=== PATIENT | female | born 1980 | race Caucasian/White ===

== ENCOUNTER 2017-12-19 10:02 | Emergency (ER) | payer OTHER ==
[~2017-12-19] VITALS: Ht 157.5 cm; Wt 58.1 kg
--- NOTE | ~2017-12-19 | EKG ---
[place] [address] [facility] [place] [address] ELECTROCARDIOGRAM REPORT Name: GADIEL HILLS [facility] [id number] Admission: 12/19/17 Attend Phys: Discharge: 12/19/17 Date of : 84 Report #: [id number] THIS REPORT FOR: //name// [facility] ED Test Date: 2017-12-19 Test Time: 10:12:04 Pat Name: GADIEL HILLS Department: Room: Gender: F Access Control Specialist: TSTORCK : 1980 Requested By: Juana Whittington Order Number: [id number] MD: Diogenes Tovar Measurements Intervals [place] Rate: 81 P: 46 MN: 163 QRS: 15 QRSD: 82 T: -17 QT: 411 QTc: 477 Interpretive Statements Sinus rhythm Borderline prolonged QT interval Compared to ECG 10/14/2012 23:31:20 QT interval as lengthened Electronically Signed On 12-19-2017 16:32:56 CDT by Diogenes Tovar [email or web address] <ELECTRONICALLY SIGNED> By: Diogenes Tovar MD, [facility] 12/19/17 1632 1012 1012 Diogenes Tovar MD, FACC /EPI
[~2017-12-19 10:02] MED LIST: ACETAMINOPHEN650 M5 PO; ACYCLOVIR 800800 M1 PO; ATIVAN0.5 MG PO; BACTRIM DS TAB1 EACH PO; BUSPIRONE HCL PO; CIPROFLOXACIN500 M1 PO; CLONAZEPAM PO; CYMBALTA30 MG PO; DOXYCYCLINE 10100 MG PO; FLAGYL500 MG PO; HYDROCODONE-AP1 EA12 PO; KEFLEX500 MG PO; NAPROSYN500 MG PO; NORCO 5-325 TA1 EACH PO; PAXIL10 MG PO; PERCOCET 5-3251 EACH PO; PHENERGAN 25 MG25 M1 PO; PROZAC 10 MG CA10 MG PO; PROZAC 20 MG20 M1 PO; PYRIDIUM200 MG PO; REMERON30 MG; SEROQUEL 50 MG50 M1 PO; ULTRAM 50MG TAB50 MG PO
[2017-12-19] MEDS ORDERED: KLONOPIN1 MG PO (10:27)
[2017-12-19] MEDS ORDERED: WELLBUTRIN 100100 MG PO (10:28)
[2017-12-19 10:29] LABS: ABSOLUTE NEUTROPHILS 5.9 thou/uL (1.4-8.2); BASOPHILS 0.5 % (0.0-2.0); EOSINOPHILS 0.1 % (0.0-3.0); HEMATOCRIT 34.9 % (37.0-47.0); HEMOGLOBIN 11.9 gm/dL (12.0-15.0); LYMPHOCYTES 11.6 % (24.0-44.0); MCH 28.3 pg (26.0-34.0); MCV 83.1 fL (80.0-100.0); MONOCYTES 2.9 % (1.0-8.0); PLATELET COUNT 221 thou/uL (150-400); POLYS 84.9 % (36.0-66.0); RDW 13.1 % (10.5-14.5); WBC 6.9 thou/uL (4.0-11.0)
[2017-12-19] MEDS ORDERED: PRILOSEC 20 MG20 MG PO (10:29)
[2017-12-19] MEDS ORDERED: METHADONE10 MG/5 M1 PO (10:30)
[2017-12-19] MEDS ORDERED: AMITRIPTYLINE H10 M3 PO (10:30)
[2017-12-19 10:41] LABS: CALCIUM 8.9 mg/dL (8.5-10.1); CREATININE 0.8 mg/dL (0.6-1.0); POTASSIUM 3.7 mmol/L (3.5-5.1)
[2017-12-19 10:47] LABS: ALBUMIN 3.9 g/dL (3.4-5.0); TOTAL BILIRUBIN 0.3 mg/dL (<0.1-1.0); TOTAL PROTEIN 7.7 g/dL (6.4-8.2)
[2017-12-19 11:43] LABS: URINE BLOOD 3+ (Negative); URINE CLARITY CLEAR; URINE COLOR YELLOW; URINE GLUCOSE-RANDOM* NEGATIVE (Negative); URINE KETONES 3+ (Negative); URINE LEUKOCYTES-REFLEX NEGATIVE (Negative); URINE NITRITE-REFLEX NEGATIVE (Negative); URINE PROTEIN (DIPSTICK) TRACE (Negative); URINE SPECIFIC GRAVITY >= 1.030 (1.005-1.035); URINE UROBILINOGEN 0.2 E.U./dl (0.2-1.0)
[2017-12-19 11:45] LABS: ICTOTEST (BILI CONFIRMATORY) Negative (Negative); URINE BILIRUBIN NEGATIVE (Negative)
[2017-12-19 11:52] LABS: URINE REDUCING SUBSTANCE NEGATIVE
[2017-12-19 12:15] LABS: CASTS None Seen /LPF (None Seen); CRYSTALS None Seen /LPF (None Seen); SQUAMOUS 4-10 Moderate /LPF (0-3)
[2017-12-19 12:16] LABS: BACTERIA-REFLEX 1-9 Few /HPF (None Seen); URINE WBC-REFLEX 0-5 Rare /HPF (0-5)
[2017-12-19 12:17] LABS: URINE RBC 3-10 Few /HPF (0-2)
[2017-12-19] MEDS ORDERED: ONDANSETRON HCL4 M2 PO (12:52)
[2017-12-19] MEDS ORDERED: ZANTAC 150MG T150 MG PO (12:52)
== END 2017-12-19 14:33 | disposition home or self-care (01) ==
LOC: ER 10:02
PROVIDERS: Nurse Practitioner Family
DX: G89.29 Other chronic pain (principal); R10.13 Epigastric pain; R07.89 Other chest pain; R11.2 Nausea with vomiting, unspecified; K50.90 Crohn's disease, unspecified, without complications; Z88.8 Allergy status to other drugs, medicaments and biological substances; Z88.2 Allergy status to sulfonamides